=== PATIENT | male | born 1975 | race Two or more races ===

== ENCOUNTER 2016-05-19 17:42 | Day surgery (SDC) | payer BC ==
[2016-05-19] MEDS ORDERED: ZESTRIL20 MG PO (18:31)
[2016-05-19] MEDS ORDERED: AMLODIPINE-OLM1 EACH PO (18:32)
[2016-05-19] MEDS ORDERED: FLONASE16 G1 BOTH NARES (18:32)
[2016-05-19 18:36] LABS: ANION GAP 12 MEQ/L (2-14); CHLORIDE 103 MEQ/L (99-109); POTASSIUM 3.3 MEQ/L (3.7-5.4); SAMPLE HEMOLYSIS CHECK 0; SAMPLE ICTERIC CHECK 0; SAMPLE LIPEMIA CHECK 0; SODIUM 139 MEQ/L (136-147)
[2016-05-19 18:42] LABS: GFR ESTIMATE (CALCULATED) > 59 mL/min/; GLUCOSE 99 mg/dL (70-99); UREA NITROGEN (BUN) 23 mg/dL (9-23)
[2016-05-20 00:02] VITALS: BP 111/86
[2016-05-20 07:05] VITALS: BP 119/78
[2016-05-20 12:18] VITALS: BP 145/63
[2016-05-20 16:43] VITALS: BP 130/80
== END 2016-05-20 21:11 | disposition home or self-care (01) ==
LOC: SDC 17:42 → 2SOUTH 19:06 → 2EAST 19:06 → 2SOUTH 19:06 → 2EAST 19:47
PROVIDERS: Ophthalmology
DX: H33.42 Traction detachment of retina, left eye (principal); H33.022 Retinal detachment with multiple breaks, left eye
CPT/HCPCS: 80048; 93005; G0378; J0131; J0690; J0713; J1100; J2250; J2405; J2710; J3010; J3300; J7120